=== PATIENT | male | born 1935 | race Caucasian/White ===

== ENCOUNTER 2017-05-07 14:58 | Emergency (ER) | payer MEDICARE ==
[~2017-05-07] VITALS: Ht 177.8 cm; Wt 67.6 kg
[2017-05-07 15:09] VITALS: BP 103/48
[2017-05-07 15:32] LABS: BASOPHILS # (AUTO) 0.5 /CMM (0.0-0.2); BASOPHILS % (AUTO) 3.4 % (0.0-2.0); HEMATOCRIT 39 % (39-51); HEMOGLOBIN 13.6 g/dL (13.5-17.5); LYMPHOCYTES # (AUTO) 2.7 /CMM (0.8-4.8); LYMPHOCYTES % (AUTO) 19.9 % (20.0-44.0); MEAN CORPUSCULAR HEMOGLOBIN 32 PG (26.0-33.0); MEAN CORPUSCULAR HGB CONC 35 g/dl (31.0-36.0); MEAN CORPUSCULAR VOLUME 92 fL (80-96); MONOCYTES # (AUTO) 1.2 /CMM (0.1-1.30); MONOCYTES % (AUTO) 8.7 % (2.0-12.0); NEUTROPHILS # (AUTO) 9.2 /CMM (1.8-8.9); PLATELET COUNT (AUTO) 247 /CMM (150-450); RDW COEFFICIENT OF VARIATION 11.8 (11.5-15.0); RED BLOOD CELL COUNT(AUTO) 4.21 MIL/uL (4.5-6.0); WHITE BLOOD COUNT (AUTO) 13.6 K/uL (4.3-11.0)
[2017-05-07 15:45] LABS: CALCIUM, SERUM 8.7 mg/dL (8.5-10.1); CARBON DIOXIDE 27 mmol/L (21-32); CHLORIDE 99 mmol/L (98-107); GLUCOSE 101 mg/dL (74-106); SODIUM SERUM 135 mmol/L (136-145); UREA NITROGEN, BLOOD 15 mg/dL (7-18)
== END 2017-05-07 16:06 | disposition home or self-care (01) ==
LOC: ER 15:01
DX: S90.561A Insect bite (nonvenomous), right ankle, initial encounter (principal); L03.115 Cellulitis of right lower limb; I10 Essential (primary) hypertension; W57.XXXA Bitten or stung by nonvenomous insect and other nonvenomous arthropods, initial encounter; Y93.89 Activity, other specified; Y92.89 Other specified places as the place of occurrence of the external cause; Y99.8 Other external cause status
CPT/HCPCS: 36415; 73630; 80048; 85025; 99285; A4606; Z7610

== ENCOUNTER 2021-08-16 08:54 | Emergency (ER) | payer MEDICARE ==
[~2021-08-16] VITALS: Ht 175.3 cm; Wt 61.2 kg
--- NOTE | 2021-08-16 09:56 | NUR ---
PT SEEN AND EXAMINED BY .
[2021-08-16] MEDS ORDERED: KETOROLAC TROMETHAMINE INJ 30 MG/ML VIAL IM ONE (10:00)
--- NOTE | 2021-08-16 10:05 | NUR ---
LIMA CATH REPLACED. URINE SPECIMEN COLLECTED AND SENT TO LAB.
[2021-08-16] MEDS ORDERED: KETOROLAC TROMETHAMINE 15 MG/ML VIAL ONE (10:10)
[2021-08-16 10:19] LABS: BILIRUBIN,URINE NEGATIVE (NEGATIVE); COLOR,URINE ORANGE (YELLOW); LEUKOCYTE ESTERASE ,URINE LARGE (NEGATIVE); NITRITE, URINE POSITIVE (NEGATIVE); PROTEIN,URINE 30 mg/dl (NEGATIVE); UGLUCOSE NEGATIVE (NEGATIVE); UROBILINOGEN,URINE 0.2 EU/dL (0.2)
[2021-08-16 10:35] LABS: RBC,URINE TOO NUMEROUS TO COUN /HPF (0-2)
[2021-08-16 10:36] LABS: BACTERIA,URINE Many /HPF (None Seen); SQUAMOUS EPITHELIAL CELL,UR Moderate /HPF (None Seen)
[2021-08-16] MEDS ORDERED: CEPH500C2 PO (10:38)
--- NOTE | 2021-08-16 10:47 | NUR ---
[facility] CALLED WITH ETA [id number]
--- NOTE | 2021-08-16 12:52 | NUR ---
REPORT GIVEN TO AMBULANCE STAFF
[2021-08-16 12:54] VITALS: BP 137/84
--- NOTE | 2021-08-16 12:54 | NUR ---
Patient discharged to home in stable condition. Written and verbal after care instructions given. Patient verbalizes understanding of instruction.
== END 2021-08-16 12:55 | disposition home or self-care (01) ==
LOC: ER 08:56
DX: N39.0 Urinary tract infection, site not specified (principal); T83.091A Other mechanical complication of indwelling urethral catheter, initial encounter; R30.0 Dysuria; I10 Essential (primary) hypertension; Z79.899 Other long term (current) drug therapy
CPT/HCPCS: 51702; 81001; 87086; 96372; 99284; J1885; 87186-TC

== ENCOUNTER 2021-09-08 02:18 | Emergency (ER) | payer MEDICARE ==
[~2021-09-08] VITALS: Ht 175.3 cm; Wt 60.3 kg
[~2021-09-08 02:18] MED LIST: CEPH500C2 PO
[2021-09-08 03:02] LABS: BILIRUBIN,URINE NEGATIVE (NEGATIVE); COLOR,URINE YELLOW (YELLOW); LEUKOCYTE ESTERASE ,URINE LARGE (NEGATIVE); NITRITE, URINE NEGATIVE (NEGATIVE); PROTEIN,URINE 100 mg/dl (NEGATIVE); UGLUCOSE NEGATIVE (NEGATIVE); UROBILINOGEN,URINE 0.2 EU/dL (0.2)
[2021-09-08 03:17] LABS: WBC,URINE 21-50 /HPF (0-3)
[2021-09-08 03:18] LABS: BACTERIA,URINE Few /HPF (None Seen); SQUAMOUS EPITHELIAL CELL,UR Rare /HPF (None Seen); YEAST,URINE Many /HPF (None Seen)
[2021-09-08] MEDS ORDERED: LIDOCAINE 2% JEL UROJET 10 ML MM ONE (04:05)
[2021-09-08] MEDS ORDERED: SULF1TAB48 PO (04:19)
--- NOTE | 2021-09-08 04:25 | NUR ---
Cano catheter changed. Urine flowing.
--- NOTE | 2021-09-08 04:39 | NUR ---
WHILE DISCHARGING THE PT. PT ASKED IF HE COULD STAY UNTIL HIS FRIEND CAN PICK HIM UP. PT CALLED HIS FRIEND, BUT NO ANSWER. ASKED IF HE CAN STAY UNTIL FRIEND ANSWERS.
--- NOTE | 2021-09-08 06:28 | NUR ---
PT CALLED FRIEND AND LEFT A MESSAGE. WILL CALL HIS FRIEND AGAIN IN 20-30 MINS
--- NOTE | 2021-09-08 07:20 | NUR ---
SPOKE WITH PATIENT ABOUT TRANSPORTATION FOR DISCHARGE. SAID HIS FRIEND IS COMING TO PICK HIM UP IN AN HOUR. NO COMPLAINTS AT THIS TIME.
[2021-09-08 08:30] VITALS: BP 118/64
== END 2021-09-08 08:31 | disposition home or self-care (01) ==
LOC: ER 02:20
DX: N39.0 Urinary tract infection, site not specified (principal); T83.098A Other mechanical complication of other urinary catheter, initial encounter; I10 Essential (primary) hypertension; Z79.899 Other long term (current) drug therapy
CPT/HCPCS: 51702; 81001; 87086; 99284; J3490

== ENCOUNTER 2021-10-06 13:23 | Emergency (ER) | payer MEDICARE ==
[~2021-10-06] VITALS: Ht 175.3 cm; Wt 64.6 kg
[~2021-10-06 13:23] MED LIST changes: +SULF1TAB48 PO
--- NOTE | 2021-10-06 13:42 | NUR ---
[id number] FOR MARCY LEG PAIN AND UNABLE TO WALK FEW HOURS "F/C CATH WAS CHANGED 1 WEEK AGO AND HAS NOT BEEN DRAINING USUAL SINCE THAN." VITALS [place] WITHIN NORMAL LIMITS NOT RESP DISTRESS NOTED.
--- NOTE | 2021-10-06 13:52 | NUR ---
BLADDER SCAN DONE AND NOTED [address] CC OF URINE [address] SOLIS MADE AWARE.
[2021-10-06] MEDS ORDERED: LIDOCAINE 2% JEL UROJET 10 ML MM ONE (13:55)
[2021-10-06] MEDS: LIDOCAINE 2% JEL UROJET 10 ML MM ONE (14:01)
--- NOTE | 2021-10-06 14:01 | NUR ---
D/C LIMA CATHETER THAT WAS IN PLACE, INSERTED NEW 16FR LIMA COUDE CATHETER URINE OUTPUT OF 600CC. PT TOLERATED PROCEDURE WELL.
[2021-10-06 14:06] LABS: BASOPHILS % (AUTO) 0.2 % (0.0-2.0); EOSINOPHILS % (AUTO) 0.9 % (0.0-6.0); HEMATOCRIT 43 % (39-51); HEMOGLOBIN 14.7 g/dL (13.5-17.5); LYMPHOCYTES # (AUTO) 3.9 K/uL (0.8-4.8); LYMPHOCYTES % (AUTO) 36.1 % (20.0-44.0); MEAN CORPUSCULAR HGB CONC 34 g/dl (31.0-36.0); MEAN CORPUSCULAR VOLUME 91 fL (80-96); MONOCYTES # (AUTO) 0.7 K/uL (0.1-1.30); MONOCYTES % (AUTO) 6.4 % (2.0-12.0); NEUTROPHILS # (AUTO) 6.1 K/uL (1.8-8.9); NEUTROPHILS % (AUTO) 56.4 % (43.0-81.0); PLATELET COUNT (AUTO) 212 K/uL (150-450); RED BLOOD CELL COUNT(AUTO) 4.69 MIL/uL (4.5-6.0); WHITE BLOOD COUNT (AUTO) 10.8 K/uL (4.3-11.0)
[2021-10-06 14:13] LABS: CARBON DIOXIDE 26 mmol/L (21-32); CHLORIDE 98 mmol/L (98-107); CREATININE 0.9 mg/dL (0.6-1.3); GLUCOSE 101 mg/dL (74-106); SODIUM SERUM 135 mmol/L (136-145); UREA NITROGEN, BLOOD 11 mg/dL (7-18)
--- NOTE | 2021-10-06 14:24 | NUR ---
URINE COLLECTED AND SENT
[2021-10-06 15:03] LABS: BILIRUBIN,URINE NEGATIVE (NEGATIVE); COLOR,URINE YELLOW (YELLOW); LEUKOCYTE ESTERASE ,URINE MODERATE (NEGATIVE); NITRITE, URINE POSITIVE (NEGATIVE); PH,URINE 7.5 (5.0-8.0); PROTEIN,URINE NEGATIVE (NEGATIVE); UGLUCOSE NEGATIVE (NEGATIVE); UROBILINOGEN,URINE 0.2 EU/dL (0.2)
[2021-10-06 15:27] LABS: RBC,URINE 21-50 /HPF (0-2)
[2021-10-06 15:28] LABS: BACTERIA,URINE Moderate /HPF (None Seen); SQUAMOUS EPITHELIAL CELL,UR Few /HPF (None Seen)
[2021-10-06] MEDS ORDERED: CEPH500C2 PO (15:48)
--- NOTE | 2021-10-06 15:53 | NUR ---
Patient discharged to home in stable condition. Written and verbal after care instructions given. Patient verbalizes understanding of instruction.
[2021-10-06 15:54] VITALS: BP 142/80
[2021-10-06] MEDS ORDERED: CEFTRIAXONE 1 G VIAL IM ONE (16:00)
== END 2021-10-06 15:54 | disposition home or self-care (01) ==
LOC: ER 13:25
DX: T83.091A Other mechanical complication of indwelling urethral catheter, initial encounter (principal); N39.0 Urinary tract infection, site not specified; R53.1 Weakness; I10 Essential (primary) hypertension; F17.200 Nicotine dependence, unspecified, uncomplicated; Z79.899 Other long term (current) drug therapy
CPT/HCPCS: 36415; 51702; 80048; 81001; 85025; 86903; 87077; 87086; 87186; 99284; J3490

== ENCOUNTER 2022-05-22 08:20 | Emergency (ER) | payer MEDICARE, OTHER ==
[~2022-05-22] VITALS: Ht 170.2 cm; Wt 66.7 kg
--- NOTE | 2022-05-22 08:31 | NUR ---
TO ER BED 6, [id number] FROM HOME FOR BURNING SENSATION AROUND THE CATHETER AREA, BLE WEAKNESS [id number], AND CONSTIPATION X2DAYS, AAOX3, BREATHING EVEN AND NON LABORED, CONNECTED TO MONITOR, AWAITING MD ORDERS.
--- NOTE | 2022-05-22 08:35 | NUR ---
DR. DYER AT BEDSIDE.
--- NOTE | 2022-05-22 08:40 | NUR ---
ESTABLISHED IV ACCESS 18G LEFT AC. BLOOD DRAWN AND SENT TO LAB.
--- NOTE | 2022-05-22 08:41 | NUR ---
LIMA CATHETER CHANGED. SCANT HEMATURIA NOTED. URINE COLLECTED AND SENT TO LAB. PT STATES "RELEIF OF PAIN".
--- NOTE | 2022-05-22 08:42 | NUR ---
COVID SWAB COLLECTED AND SENT TO LAB.
[2022-05-22 08:54] LABS: BASOPHILS % (AUTO) 0.3 % (0.0-2.0); EOSINOPHILS % (AUTO) 0.7 % (0.0-6.0); HEMATOCRIT 48 % (39-51); LYMPHOCYTES # (AUTO) 5.6 K/uL (0.8-4.8); LYMPHOCYTES % (AUTO) 31.4 % (20.0-44.0); MEAN CORPUSCULAR HGB CONC 34 g/dl (31.0-36.0); MEAN CORPUSCULAR VOLUME 93 fL (80-96); MONOCYTES # (AUTO) 0.9 K/uL (0.1-1.30); MONOCYTES % (AUTO) 5.1 % (2.0-12.0); NEUTROPHILS # (AUTO) 11.1 K/uL (1.8-8.9); NEUTROPHILS % (AUTO) 62.5 % (43.0-81.0); PLATELET COUNT (AUTO) 287 K/uL (150-450); RED BLOOD CELL COUNT(AUTO) 5.09 MIL/uL (4.5-6.0); WHITE BLOOD COUNT (AUTO) 17.8 K/uL (4.3-11.0)
[2022-05-22 09:16] LABS: CALCIUM, SERUM 9.2 mg/dL (8.5-10.1); CARBON DIOXIDE 27 mmol/L (21-32); CHLORIDE 99 mmol/L (98-107); CREATININE 0.9 mg/dL (0.6-1.3); GLUCOSE 133 mg/dL (74-106); POTASSIUM 4.1 mmol/L (3.5-5.1); SODIUM SERUM 136 mmol/L (136-145); UREA NITROGEN, BLOOD 11 mg/dL (7-18)
[2022-05-22] MEDS ORDERED: FINA5TAB11 PO (09:21)
[2022-05-22] MEDS ORDERED: FOSI40TA5 PO (09:21)
[2022-05-22] MEDS ORDERED: AMLO-213 PO (09:21)
[2022-05-22] MEDS ORDERED: TAMS-12 PO (09:21)
[2022-05-22 09:50] LABS: BILIRUBIN,URINE 1+ (NEGATIVE); COLOR,URINE YELLOW (YELLOW); LEUKOCYTE ESTERASE ,URINE 3+ (NEGATIVE); NITRITE, URINE NEGATIVE (NEGATIVE); PROTEIN,URINE 1+ mg/dl (NEGATIVE); UGLUCOSE NEGATIVE (NEGATIVE); UROBILINOGEN,URINE 0.2 EU/dL (0.2)
[2022-05-22 10:12] LABS: RBC,URINE 21-50 /HPF (0-2); WBC,URINE 51-80 /HPF (0-3)
[2022-05-22 10:14] LABS: BACTERIA,URINE Rare /HPF (None Seen); SQUAMOUS EPITHELIAL CELL,UR None Seen /HPF (None Seen)
[2022-05-22] MEDS ORDERED: CEFTRIAXONE 1GM BAG (ER ONLY) 50 ML IV ONE (10:24)
[2022-05-22] MEDS ORDERED: CEFTRIAXONE 1GM BAG (ER ONLY) 1 GM/50 ML PIGGYBACK IV ONE (10:30)
--- NOTE | 2022-05-22 11:13 | NUR ---
POA AT [facility]: ZULY STUART [phone]
--- NOTE | 2022-05-22 12:42 | NUR ---
SCALE MECHANIC AT BEDSIDE.
--- NOTE | 2022-05-22 13:07 | NUR ---
JACKIE BURGESS [phone]
--- NOTE | 2022-05-22 13:15 | NUR ---
PATIENT TAKEN TO CT VIA [facility]
--- NOTE | 2022-05-22 14:11 | NUR ---
DR. MOSHER SPEAKING WITH DR. DYER.
--- NOTE | 2022-05-22 14:15 | NUR ---
PT ACCEPTED TO [facility]
--- NOTE | 2022-05-22 15:11 | NUR ---
JACKIE CALLED AWAITING BED ASSIGNMENT AT [facility].
[2022-05-22 16:14] LABS: BAND % (MANUAL) 1 % (0.0-5.0); EOSINOPHILS % (MANUAL) 1 % (0-4); LYMPHOCYTES % (MANUAL) 27 % (16-48); MONOCYTES % (MANUAL) 4 % (0-11.0); NEUTROPHILS % (MANUAL) 67 (42-76)
--- NOTE | 2022-05-22 16:49 | NUR ---
CALLED JACKIE BURGESS [phone] FOR UPDATE WILL CALL BACK IN 30 MINS.
--- NOTE | 2022-05-22 18:27 | NUR ---
FAXED COVID RESULT TO [phone]
[2022-05-22 18:34] VITALS: BP 132/63
--- NOTE | 2022-05-22 19:35 | NUR ---
PATIENT ACCEPTED AT [facility] ROOM 212 REPORT [phone] NO ETA FOR [employer] [facility]
--- NOTE | 2022-05-22 19:44 | NUR ---
[facility] ETA 75 MINUTES, PER [place] [facility]ATCH
--- NOTE | 2022-05-22 21:45 | NUR ---
PATIENT PICKUP BY [facility] STAFF AND REPORT GIVEN FOR TRANSFER TO [facility] IN A STABLE CONDITION.
--- NOTE | 2022-05-22 23:07 | NUR ---
REPORT GIVEN TO SANDI MAHMOOD ROOM 212 LEATHA MEDINA FOR [facility]
== END 2022-05-22 21:45 | disposition short-term general hospital (02) ==
LOC: ER 08:39
DX: R53.1 Weakness (principal); N39.0 Urinary tract infection, site not specified; Z93.6 Other artificial openings of urinary tract status; M48.061 Spinal stenosis, lumbar region without neurogenic claudication; M25.78 Osteophyte, vertebrae; D72.829 Elevated white blood cell count, unspecified; N40.1 Benign prostatic hyperplasia with lower urinary tract symptoms; R33.8 Other retention of urine; I10 Essential (primary) hypertension; Z79.899 Other long term (current) drug therapy; Z20.822 Contact with and (suspected) exposure to COVID-19
CPT/HCPCS: 99291; 96365; 72131; 87426; 99292; 51702; 85025; 80048; 87086; 81001; 36415; 84484; 85730; 87081; 85007; J0696; C9803

== ENCOUNTER 2022-07-11 20:01 | Emergency (ER) | payer MEDICARE ==
[~2022-07-11 20:01] MED LIST changes: +AMLO-213 PO; -CEPH500C2 PO; +FINA5TAB11 PO; +FOSI40TA5 PO; -SULF1TAB48 PO; +TAMS-12 PO
--- NOTE | 2022-07-11 21:16 | NUR ---
called for triage not in the waiting room
--- NOTE | 2022-07-11 21:26 | NUR ---
called for triage not in the waiting room
--- NOTE | 2022-07-11 21:30 | NUR ---
called for triage not in the waiting room
== END 2022-07-11 21:32 | disposition left against medical advice (07) ==
LOC: ER 20:01
DX: Z53.21 Procedure and treatment not carried out due to patient leaving prior to being seen by health care provider (principal)

== ENCOUNTER 2022-12-14 08:13 | Inpatient (IN) | payer MEDICARE ==
[~2022-12-14] VITALS: Ht 177.8 cm; Wt 64.4 kg
[2022-12-14 09:12] LABS: BASOPHILS % (AUTO) 0.1 % (0.0-2.0); EOSINOPHILS % (AUTO) 0.3 % (0.0-6.0); HEMATOCRIT 46 % (39-51); HEMOGLOBIN 15.6 g/dL (13.5-17.5); LYMPHOCYTES # (AUTO) 3.5 K/uL (0.8-4.8); LYMPHOCYTES % (AUTO) 48.1 % (20.0-44.0); MEAN CORPUSCULAR HEMOGLOBIN 31 PG (26.0-33.0); MEAN CORPUSCULAR HGB CONC 34 g/dl (31.0-36.0); MEAN CORPUSCULAR VOLUME 92 fL (80-96); MONOCYTES # (AUTO) 0.5 K/uL (0.1-1.30); MONOCYTES % (AUTO) 7.3 % (2.0-12.0); NEUTROPHILS # (AUTO) 3.3 K/uL (1.8-8.9); NEUTROPHILS % (AUTO) 44.2 % (43.0-81.0); PLATELET COUNT (AUTO) 142 K/uL (150-450); RED CELL DISTRIBUTION WIDTH 13.7 % (11.5-15.0); WHITE BLOOD COUNT (AUTO) 7.4 K/uL (4.3-11.0)
[2022-12-14 09:19] LABS: CALCIUM, SERUM 9.1 mg/dL (8.5-10.1); CARBON DIOXIDE 26 mmol/L (21-32); CHLORIDE 99 mmol/L (98-107); CREATININE 0.8 mg/dL (0.6-1.3); GLUCOSE 125 mg/dL (74-106); POTASSIUM 3.7 mmol/L (3.5-5.1); SODIUM SERUM 133 mmol/L (136-145); UREA NITROGEN, BLOOD 8 mg/dL (7-18)
[2022-12-14 09:25] LABS: ALANINE AMINOTRANSFERASE 25 U/L (12-78); ALBUMIN 3.2 g/dL (3.4-5.0); ALKALINE PHOSPHATASE 104 U/L (46-116); ASPARTATE AMINOTRANSFERASE 30 U/L (15-37); BILIRUBIN,DIRECT 0.1 mg/dL (0.0-0.2); BILIRUBIN,TOTAL 0.5 mg/dL (0.2-1.0); TOTAL PROTEIN, SERUM 6.6 g/dL (6.4-8.2)
[2022-12-14 13:25] LABS: APPEARANCE,URINE SLIGHTLY CLOUDY (CLEAR); BILIRUBIN,URINE NEGATIVE (NEGATIVE); BLOOD, URINE 2+ Ery/uL (NEGATIVE); COLOR,URINE YELLOW (YELLOW); KETONES,URINE 1+ mg/dL (NEGATIVE); LEUKOCYTE ESTERASE ,URINE 2+ (NEGATIVE); NITRITE, URINE POSITIVE (NEGATIVE); PROTEIN,URINE 1+ mg/dl (NEGATIVE); UGLUCOSE NEGATIVE (NEGATIVE); UROBILINOGEN,URINE 0.2 EU/dL (0.2)
[2022-12-14 13:26] LABS: ADD URINE CULTURE YES; BACTERIA,URINE Moderate /HPF (None Seen); SQUAMOUS EPITHELIAL CELL,UR Rare /HPF (None Seen); WBC,URINE 21-50 /HPF (0-3)
[2022-12-14] MEDS ORDERED: CEFTRIAXONE 1GM BAG (ER ONLY) 1 GM/50 ML PIGGYBACK IV ONE (14:00)
[2022-12-14] MEDS ORDERED: CEFTRIAXONE 1GM BAG (ER ONLY) 50 ML IV ONE (14:09)
[2022-12-14] MEDS ORDERED: GABA-532 PO (16:04)
[2022-12-14] MEDS ORDERED: ENOXAPARIN SODIUM 30 MG/0.3 ML DISP.SYRIN SQ SCH (17:00)
[2022-12-14] MEDS ORDERED: Z GUARD REMEDY 4 OZ OINT TP PRN (17:00)
[2022-12-14] MEDS ORDERED: CLONIDINE HCL 0.1 MG TABLET PO PRN (17:00)
[2022-12-14] MEDS ORDERED: GABAPENTIN 100 MG CAPSULE PO PRN (17:00)
[2022-12-14] MEDS ORDERED: ONDANSETRON HCL/PF 4 MG/2 ML VIAL IVP PRN (17:00)
[2022-12-14] MEDS ORDERED: MAG HYDROX/AL HYDROX/SIMETH 30 ML UDC PO PRN (17:00)
[2022-12-14] MEDS ORDERED: MAGNESIUM HYDROXIDE 30 ML UDC PO PRN (17:00)
[2022-12-14] MEDS ORDERED: ACETAMINOPHEN 325 MG TABLET PO PRN (17:00)
[2022-12-14 20:00] VITALS: BP 160/75; TEMP 99.1; O2SAT 91; O2SAT 94
[2022-12-14] MEDS: ENOXAPARIN SODIUM 40 MG/0.4 ML DISP.SYRIN SQ SCH (21:17)
[2022-12-14] MEDS: IV NS 0.9% 1,000 ML IV PRN (21:20)
[2022-12-14 21:30] VITALS: BP 136/69; TEMP 98.7; O2SAT 95
[2022-12-15 06:47] LABS: BASOPHILS % (AUTO) 0.2 % (0.0-2.0); EOSINOPHILS % (AUTO) 0.3 % (0.0-6.0); HEMATOCRIT 43 % (39-51); HEMOGLOBIN 14.9 g/dL (13.5-17.5); LYMPHOCYTES # (AUTO) 3.8 K/uL (0.8-4.8); LYMPHOCYTES % (AUTO) 55.3 % (20.0-44.0); MEAN CORPUSCULAR HEMOGLOBIN 31 PG (26.0-33.0); MEAN CORPUSCULAR HGB CONC 34 g/dl (31.0-36.0); MEAN CORPUSCULAR VOLUME 91 fL (80-96); MONOCYTES # (AUTO) 0.5 K/uL (0.1-1.30); MONOCYTES % (AUTO) 7.3 % (2.0-12.0); NEUTROPHILS # (AUTO) 2.5 K/uL (1.8-8.9); NEUTROPHILS % (AUTO) 36.9 % (43.0-81.0); PLATELET COUNT (AUTO) 133 K/uL (150-450); RED BLOOD CELL COUNT(AUTO) 4.78 MIL/uL (4.5-6.0); RED CELL DISTRIBUTION WIDTH 13.5 % (11.5-15.0); WHITE BLOOD COUNT (AUTO) 6.8 K/uL (4.3-11.0)
[2022-12-15 07:05] LABS: CALCIUM, SERUM 8.5 mg/dL (8.5-10.1); CARBON DIOXIDE 27 mmol/L (21-32); CHLORIDE 101 mmol/L (98-107); CREATININE 0.8 mg/dL (0.6-1.3); GLUCOSE 98 mg/dL (74-106); PHOSPHORUS 2.9 mg/dL (2.5-4.9); POTASSIUM 3.6 mmol/L (3.5-5.1); SODIUM SERUM 137 mmol/L (136-145); UREA NITROGEN, BLOOD 8 mg/dL (7-18)
[2022-12-15 08:00] VITALS: BP 130/70; TEMP 98.4; O2SAT 92
[2022-12-15] MEDS: TAMSULOSIN 0.4 MG CAP.SR.24H PO SCH (08:26)
[2022-12-15] MEDS: FINASTERIDE (5 MG) 5 MG TABLET PO SCH (08:26)
[2022-12-15] MEDS ORDERED: AMLODIPINE BESYLATE 10 MG TABLET PO SCH (09:00)
[2022-12-15] MEDS: IV NS 0.9% 1,000 ML IV PRN (10:51)
[2022-12-15] MEDS: CEFTRIAXONE 1 G in IV D5W 50 ML IV SCH (13:23)
[2022-12-15] MEDS ORDERED: GABA-532 PO (14:30)
[2022-12-15 16:00] VITALS: BP 128/78; TEMP 98.4; O2SAT 98
[2022-12-15 20:00] VITALS: BP 129/53; TEMP 99.1; O2SAT 95
[2022-12-15] MEDS: GABAPENTIN 100 MG CAPSULE PO SCH (20:40)
[2022-12-15] MEDS: ENOXAPARIN SODIUM 40 MG/0.4 ML DISP.SYRIN SQ SCH (20:40)
[2022-12-16 07:00] VITALS: BP 148/63; TEMP 98.1; O2SAT 92
[2022-12-16 07:31] LABS: BASOPHILS % (AUTO) 0.1 % (0.0-2.0); EOSINOPHILS % (AUTO) 0.4 % (0.0-6.0); HEMATOCRIT 42 % (39-51); HEMOGLOBIN 14.6 g/dL (13.5-17.5); LYMPHOCYTES # (AUTO) 3.5 K/uL (0.8-4.8); LYMPHOCYTES % (AUTO) 52.5 % (20.0-44.0); MEAN CORPUSCULAR HEMOGLOBIN 32 PG (26.0-33.0); MEAN CORPUSCULAR HGB CONC 35 g/dl (31.0-36.0); MEAN CORPUSCULAR VOLUME 90 fL (80-96); MONOCYTES # (AUTO) 0.5 K/uL (0.1-1.30); MONOCYTES % (AUTO) 7.2 % (2.0-12.0); NEUTROPHILS # (AUTO) 2.6 K/uL (1.8-8.9); NEUTROPHILS % (AUTO) 39.8 % (43.0-81.0); PLATELET COUNT (AUTO) 129 K/uL (150-450); RED CELL DISTRIBUTION WIDTH 13.3 % (11.5-15.0); WHITE BLOOD COUNT (AUTO) 6.6 K/uL (4.3-11.0)
[2022-12-16 08:02] LABS: CALCIUM, SERUM 8.1 mg/dL (8.5-10.1); CARBON DIOXIDE 22 mmol/L (21-32); CHLORIDE 101 mmol/L (98-107); CREATININE 0.5 mg/dL (0.6-1.3); GLUCOSE 87 mg/dL (74-106); POTASSIUM 3.2 mmol/L (3.5-5.1); SODIUM SERUM 135 mmol/L (136-145); UREA NITROGEN, BLOOD 6 mg/dL (7-18)
[2022-12-16] MEDS: GABAPENTIN 100 MG CAPSULE PO SCH (08:24)
[2022-12-16] MEDS: TAMSULOSIN 0.4 MG CAP.SR.24H PO SCH (08:25)
[2022-12-16] MEDS: FINASTERIDE (5 MG) 5 MG TABLET PO SCH (08:25)
[2022-12-16 08:27] VITALS: BP 148/63
[2022-12-16] MEDS ORDERED: LISINOPRIL (20MG) 20 MG TABLET PO SCH (09:00)
[2022-12-16] MEDS ORDERED: CEPH500C2 PO (09:50)
[2022-12-16] MEDS ORDERED: POTASSIUM CHLORIDE 20 MEQ TAB.PRT.SR PO ONE (10:00)
[2022-12-16] MEDS: CEFTRIAXONE 1 G in IV D5W 50 ML IV SCH (13:21)
[2022-12-16] MEDS ORDERED: CLOTRIMAZOLE 1% 15 GM TUBE TP SCH (17:00)
== END 2022-12-16 14:45 | disposition home health service (06) | DRG 640 ==
LOC: ER 08:15 → MED 15:41
PROVIDERS: ADMIT Internal Medicine; ATTEND Internal Medicine
DX: E86.0 Dehydration (principal); E43 Unspecified severe protein-calorie malnutrition; G93.41 Metabolic encephalopathy; N39.0 Urinary tract infection, site not specified; J98.11 Atelectasis; N13.8 Other obstructive and reflux uropathy; E87.20 Acidosis, unspecified; E87.1 Hypo-osmolality and hyponatremia; N40.1 Benign prostatic hyperplasia with lower urinary tract symptoms; I10 Essential (primary) hypertension; R33.9 Retention of urine, unspecified; Z79.899 Other long term (current) drug therapy; K21.9 Gastro-esophageal reflux disease without esophagitis; F03.90 Unspecified dementia, unspecified severity, without behavioral disturbance, psychotic disturbance, mood disturbance, and anxiety; E86.1 Hypovolemia; D72.819 Decreased white blood cell count, unspecified; D64.9 Anemia, unspecified; E88.09 Other disorders of plasma-protein metabolism, not elsewhere classified
CPT/HCPCS: 36415; 71045-TC; 80048-TC; 80076-TC; 81001; 83735-TC; 84100-TC; 84484-TC; 85025-TC; 87086-TC; A4223; G0378; J0696; J1650; J7030; J7060

== ENCOUNTER 2022-12-20 19:12 | Emergency (ER) | payer MEDICARE ==
[~2022-12-20] VITALS: Ht 175.3 cm; Wt 65.8 kg
[~2022-12-20 19:12] MED LIST changes: -AMLO-213 PO; +CEPH500C2 PO; +GABA-532 PO
[2022-12-20] MEDS ORDERED: IV NS 0.9% 1,000 ML IV ONE (20:30)
[2022-12-20 21:01] LABS: BASOPHILS # (AUTO) 0.1 K/uL (0.0-0.2); BASOPHILS % (AUTO) 0.8 % (0.0-2.0); EOSINOPHILS # (AUTO) 0.1 K/uL (0.0-0.7); EOSINOPHILS % (AUTO) 1.5 % (0.0-6.0); HEMATOCRIT 44 % (39-51); HEMOGLOBIN 15.1 g/dL (13.5-17.5); LYMPHOCYTES # (AUTO) 3.4 K/uL (0.8-4.8); LYMPHOCYTES % (AUTO) 42.1 % (20.0-44.0); MEAN CORPUSCULAR HEMOGLOBIN 31 PG (26.0-33.0); MEAN CORPUSCULAR HGB CONC 34 g/dl (31.0-36.0); MEAN CORPUSCULAR VOLUME 90 fL (80-96); MONOCYTES # (AUTO) 0.7 K/uL (0.1-1.30); MONOCYTES % (AUTO) 8.1 % (2.0-12.0); NEUTROPHILS # (AUTO) 3.8 K/uL (1.8-8.9); NEUTROPHILS % (AUTO) 47.5 % (43.0-81.0); PLATELET COUNT (AUTO) 296 K/uL (150-450); RED CELL DISTRIBUTION WIDTH 13.3 % (11.5-15.0); WHITE BLOOD COUNT (AUTO) 8.1 K/uL (4.3-11.0)
[2022-12-20 21:21] LABS: CALCIUM, SERUM 8.9 mg/dL (8.5-10.1); CARBON DIOXIDE 22 mmol/L (21-32); CHLORIDE 99 mmol/L (98-107); CREATININE 0.9 mg/dL (0.6-1.3); GLUCOSE 184 mg/dL (74-106); POTASSIUM 3.4 mmol/L (3.5-5.1); SODIUM SERUM 135 mmol/L (136-145); UREA NITROGEN, BLOOD 11 mg/dL (7-18)
[2022-12-20 22:07] LABS: APPEARANCE,URINE SLIGHTLY CLOUDY (CLEAR); BILIRUBIN,URINE NEGATIVE (NEGATIVE); BLOOD, URINE 1+ Ery/uL (NEGATIVE); COLOR,URINE YELLOW (YELLOW); KETONES,URINE TRACE mg/dL (NEGATIVE); LEUKOCYTE ESTERASE ,URINE 1+ (NEGATIVE); NITRITE, URINE NEGATIVE (NEGATIVE); PH,URINE 5.5 (5.0-8.0); PROTEIN,URINE 1+ mg/dl (NEGATIVE); UGLUCOSE NEGATIVE (NEGATIVE)
[2022-12-20 22:20] LABS: ADD URINE CULTURE YES; BACTERIA,URINE 3+ /HPF (None Seen)
[2022-12-20 22:28] VITALS: BP 145/66; TEMP 98.1; O2SAT 98
== END 2022-12-20 22:28 | disposition home or self-care (01) ==
LOC: ER 19:13
DX: T83.091A Other mechanical complication of indwelling urethral catheter, initial encounter (principal); I10 Essential (primary) hypertension
CPT/HCPCS: 99284; 96360; 51701; 85025; 80048; 87086; 81001; 36415; J7030

== ENCOUNTER 2023-12-25 10:07 | Emergency (ER) | payer MEDICARE, OTHER ==
[~2023-12-25] VITALS: Ht 182.9 cm; Wt 81.6 kg
--- NOTE | 2023-12-25 10:30 | NUR ---
BIB Caregiver "He needs a Cano change and I think he may have a UTI"
[2023-12-25 12:30] LABS: APPEARANCE,URINE SLIGHTLY CLOUDY (CLEAR); BILIRUBIN,URINE NEGATIVE (NEGATIVE); BLOOD, URINE 3+ Ery/uL (NEGATIVE); COLOR,URINE YELLOW (YELLOW); KETONES,URINE NEGATIVE (NEGATIVE); LEUKOCYTE ESTERASE ,URINE 3+ (NEGATIVE); NITRITE, URINE POSITIVE (NEGATIVE); PROTEIN,URINE NEGATIVE (NEGATIVE); UGLUCOSE NEGATIVE (NEGATIVE); UROBILINOGEN,URINE 0.2 EU/dL (0.2)
[2023-12-25 13:02] LABS: WBC,URINE 21-50 /HPF (0-3)
[2023-12-25 13:03] LABS: ADD URINE CULTURE YES; BACTERIA,URINE Many /HPF (None Seen); SQUAMOUS EPITHELIAL CELL,UR Few /HPF (None Seen)
[2023-12-25] MEDS ORDERED: CEPH500T PO (13:11)
[2023-12-25 13:50] VITALS: BP 135/77; TEMP 98.3; O2SAT 98
--- NOTE | 2023-12-25 13:51 | NUR ---
Patient discharged to home in stable condition. Written and verbal after care instructions given. Patient verbalizes understanding of instruction.
== END 2023-12-25 13:51 | disposition home or self-care (01) ==
LOC: ER 10:11
DX: T83.098A Other mechanical complication of other urinary catheter, initial encounter (principal); I10 Essential (primary) hypertension; F17.200 Nicotine dependence, unspecified, uncomplicated; N39.0 Urinary tract infection, site not specified; Y84.6 Urinary catheterization as the cause of abnormal reaction of the patient, or of later complication, without mention of misadventure at the time of the procedure; Y92.89 Other specified places as the place of occurrence of the external cause
CPT/HCPCS: 81001

== ENCOUNTER 2024-09-15 10:44 | Inpatient (IN) | payer MEDICARE, OTHER ==
[~2024-09-15] VITALS: Ht 167.6 cm; Wt 64.0 kg
[~2024-09-15 10:44] MED LIST changes: +CEPH500T PO
[2024-09-15 11:25] LABS: BASOPHILS % (AUTO) 0.1 % (0.0-2.0); EOSINOPHILS % (AUTO) 0.1 % (0.0-6.0); HEMATOCRIT 50 % (39-51); HEMOGLOBIN 16.8 g/dL (13.5-17.5); LYMPHOCYTES % (AUTO) 26.6 % (20.0-44.0); MEAN CORPUSCULAR HEMOGLOBIN 32 PG (26.0-33.0); MEAN CORPUSCULAR HGB CONC 34 g/dl (31.0-36.0); MEAN CORPUSCULAR VOLUME 94 fL (80-96); MONOCYTES % (AUTO) 3.9 % (2.0-12.0); NEUTROPHILS # (AUTO) 18.2 K/uL (1.8-8.9); NEUTROPHILS % (AUTO) 69.3 % (43.0-81.0); PLATELET COUNT (AUTO) 201 K/uL (150-450); RED BLOOD CELL COUNT(AUTO) 5.27 MIL/uL (4.5-6.0); RED CELL DISTRIBUTION WIDTH 13.8 % (11.5-15.0); WHITE BLOOD COUNT (AUTO) 26.2 K/uL (4.3-11.0)
[2024-09-15] MEDS: IV NS 0.9% 1,000 ML BAG IV ONE ×2 (11:30→12:00)
[2024-09-15 11:39] LABS: ALBUMIN 3.6 g/dL (3.4-5.0); BILIRUBIN,DIRECT 0.2 mg/dL (0.0-0.2); BILIRUBIN,TOTAL 0.9 mg/dL (0.2-1.0); CALCIUM, SERUM 9.4 mg/dL (8.5-10.1); CREATININE 0.9 mg/dL (0.6-1.3); POTASSIUM 4.2 mmol/L (3.5-5.1)
[2024-09-15 11:43] LABS: LACTIC ACID 2.6 mmol/L (0.4-2.0)
[2024-09-15] MEDS: CEFTRIAXONE 1GM BAG (ER ONLY) 50 ML IV ONE (12:20)
[2024-09-15] MEDS ORDERED: AMLO10TA4 PO (12:48)
[2024-09-15 13:03] LABS: APPEARANCE,URINE SLIGHTLY CLOUDY (CLEAR); COLOR,URINE LIGHT RED (YELLOW)
[2024-09-15 13:04] LABS: BACTERIA,URINE 2+ /HPF (None Seen); SQUAMOUS EPITHELIAL CELL,UR None Seen /HPF (None Seen); WBC,URINE 21-50 /HPF (0-3)
[2024-09-15 15:00] VITALS: BP 166/67; TEMP 98.1; O2SAT 93
[2024-09-15] MEDS ORDERED: MAGNESIUM HYDROXIDE 30 ML UDC PO PRN (15:30)
[2024-09-15] MEDS ORDERED: ACETAMINOPHEN 325 MG TABLET PO PRN (15:30)
[2024-09-15] MEDS ORDERED: ONDANSETRON HCL/PF 4 MG/2 ML VIAL IVP PRN (15:30)
[2024-09-15] MEDS ORDERED: Z GUARD REMEDY 4 OZ OINT TP PRN (15:30)
[2024-09-15] MEDS ORDERED: MAG HYDROX/AL HYDROX/SIMETH 30 ML UDC PO PRN (15:30)
[2024-09-15 16:00] VITALS: BP 149/66; TEMP 98.1; O2SAT 94
[2024-09-15] MEDS: MEROPENEM 500 MG in IV NS 0.9% 50 ML IV SCH (17:41)
[2024-09-15] MEDS: IV LR 1000 ML 1,000 ML IV SCH (17:42)
[2024-09-15] MEDS: ENOXAPARIN SODIUM 40 MG/0.4 ML DISP.SYRIN SQ SCH (18:33)
[2024-09-15] MEDS ORDERED: BISACODYL SUPP (10 MG) 10 MG/SUPP.RECT SUPP.RECT RC PRN (19:30)
[2024-09-15] MEDS ORDERED: LACTULOSE 10 G/15 ML UDC (PYXIS) PO PRN (19:30)
[2024-09-15 20:00] VITALS: BP 139/57; TEMP 99; O2SAT 93
[2024-09-16 07:42] LABS: CALCIUM, SERUM 8.7 mg/dL (8.5-10.1); CREATININE 0.8 mg/dL (0.6-1.3); MAGNESIUM 1.9 mg/dL (1.8-2.4); PHOSPHORUS 2.6 mg/dL (2.5-4.9); POTASSIUM 3.5 mmol/L (3.5-5.1)
[2024-09-16 08:00] VITALS: BP 173/72; TEMP 98.1; O2SAT 96
[2024-09-16 08:32] LABS: BASOPHILS % (AUTO) 0.2 % (0.0-2.0); EOSINOPHILS # (AUTO) 0.1 K/uL (0.0-0.7); EOSINOPHILS % (AUTO) 0.8 % (0.0-6.0); HEMATOCRIT 39 % (39-51); HEMOGLOBIN 13.4 g/dL (13.5-17.5); LYMPHOCYTES % (AUTO) 40.3 % (20.0-44.0); MEAN CORPUSCULAR HEMOGLOBIN 32 PG (26.0-33.0); MEAN CORPUSCULAR HGB CONC 35 g/dl (31.0-36.0); MEAN CORPUSCULAR VOLUME 93 fL (80-96); MONOCYTES # (AUTO) 0.9 K/uL (0.1-1.30); MONOCYTES % (AUTO) 5.9 % (2.0-12.0); NEUTROPHILS # (AUTO) 7.9 K/uL (1.8-8.9); NEUTROPHILS % (AUTO) 52.8 % (43.0-81.0); PLATELET COUNT (AUTO) 166 K/uL (150-450); RED BLOOD CELL COUNT(AUTO) 4.21 MIL/uL (4.5-6.0); RED CELL DISTRIBUTION WIDTH 13.6 % (11.5-15.0)
[2024-09-16] MEDS: SORBITOL SOLUTION 70% 30 ML SOLUTION PO SCH (08:56)
[2024-09-16 08:57] VITALS: BP 173/72
[2024-09-16] MEDS: LISINOPRIL (20MG) 20 MG TABLET PO SCH (08:57)
[2024-09-16] MEDS: TAMSULOSIN 0.4 MG CAP.SR.24H PO SCH (08:57)
[2024-09-16] MEDS: AMLODIPINE BESYLATE 10 MG TABLET PO SCH (08:57)
[2024-09-16] MEDS: FINASTERIDE (5 MG) 5 MG TABLET PO SCH (08:57)
[2024-09-16] MEDS: GABAPENTIN 100 MG CAPSULE PO SCH (08:57)
[2024-09-16] MEDS ORDERED: SULF1TAB48 PO (12:14)
[2024-09-16] MEDS ORDERED: SORB30SO2 PO (12:14)
[2024-09-16] MEDS ORDERED: METH1TAB69 PO (12:14)
[2024-09-16 12:37] LABS: LYMPHOCYTES % (MANUAL) 46 % (16-48); NEUTROPHILS % (MANUAL) 54 (42-76); PLATELET ESTIMATE ADEQUATE
== END 2024-09-16 14:45 | disposition home or self-care (01) | DRG 690 ==
LOC: ER 10:46 → TELE 12:23 → MED 15:09
PROVIDERS: ADMIT Nurse Practitioner Acute Care; ATTEND Nurse Practitioner Acute Care
DX: N39.0 Urinary tract infection, site not specified (principal); E87.1 Hypo-osmolality and hyponatremia; I10 Essential (primary) hypertension; N40.0 Benign prostatic hyperplasia without lower urinary tract symptoms; Z79.899 Other long term (current) drug therapy; K62.89 Other specified diseases of anus and rectum; I25.10 Atherosclerotic heart disease of native coronary artery without angina pectoris; G62.9 Polyneuropathy, unspecified; D72.829 Elevated white blood cell count, unspecified; K59.09 Other constipation
CPT/HCPCS: 36415; 71045-TC; 80048-TC; 80061-TC; 80076-TC; 81001; 83605-TC; 83690-TC; 83735-TC; 84100-TC; 85025-TC; 87040-TC; 87186-TC; A4223; G0378; J1650; J2185; J7120

== ENCOUNTER 2024-09-24 17:39 | Inpatient (IN) | payer MEDICARE, OTHER ==
[~2024-09-24] VITALS: Ht 170.2 cm; Wt 63.5 kg
[~2024-09-24 17:39] MED LIST changes: +AMLO10TA4 PO; -CEPH500C2 PO; -CEPH500T PO; +METH1TAB69 PO; +SORB30SO2 PO; +SULF1TAB48 PO
[2024-09-24 18:48] LABS: HEMOGLOBIN 15.8 g/dL (13.5-17.5); MEAN CORPUSCULAR HGB CONC 35 g/dl (31.0-36.0); RED BLOOD CELL COUNT(AUTO) 5.03 MIL/uL (4.5-6.0)
[2024-09-24 18:48] LABS: APPEARANCE,URINE CLEAR (CLEAR); BILIRUBIN,URINE Negative (NEGATIVE); BLOOD, URINE Large Ery/uL (NEGATIVE); COLOR,URINE YELLOW (YELLOW); KETONES,URINE Negative (NEGATIVE); LEUKOCYTE ESTERASE ,URINE Small (NEGATIVE); PH,URINE 6.5 (5.0-8.0); PROTEIN,URINE Negative (NEGATIVE); UGLUCOSE Negative (NEGATIVE); UROBILINOGEN,URINE 0.2 EU/dL (0.2)
[2024-09-24 18:50] LABS: NITRITE, URINE NEGATIVE (NEGATIVE)
[2024-09-24 18:51] LABS: BASOPHILS % (AUTO) 0.3 % (0.0-2.0); EOSINOPHILS # (AUTO) 0.2 K/uL (0.0-0.7); EOSINOPHILS % (AUTO) 1.8 % (0.0-6.0); HEMATOCRIT 46 % (39-51); LYMPHOCYTES # (AUTO) 7.3 K/uL (0.8-4.8); LYMPHOCYTES % (AUTO) 63.4 % (20.0-44.0); MEAN CORPUSCULAR HEMOGLOBIN 31 PG (26.0-33.0); MEAN CORPUSCULAR VOLUME 91 fL (80-96); MONOCYTES # (AUTO) 0.4 K/uL (0.1-1.30); MONOCYTES % (AUTO) 3.8 % (2.0-12.0); NEUTROPHILS # (AUTO) 3.5 K/uL (1.8-8.9); NEUTROPHILS % (AUTO) 30.7 % (43.0-81.0); PLATELET COUNT (AUTO) 269 K/uL (150-450); RED CELL DISTRIBUTION WIDTH 13.5 % (11.5-15.0); WHITE BLOOD COUNT (AUTO) 11.6 K/uL (4.3-11.0)
[2024-09-24 18:55] LABS: CALCIUM, SERUM 8.7 mg/dL (8.5-10.1); CARBON DIOXIDE 23 mmol/L (21-32); CHLORIDE 99 mmol/L (98-107); CREATININE 0.9 mg/dL (0.6-1.3); GLUCOSE 107 mg/dL (74-106); POTASSIUM 4.2 mmol/L (3.5-5.1); SODIUM SERUM 131 mmol/L (136-145); UREA NITROGEN, BLOOD 11 mg/dL (7-18)
[2024-09-24 18:56] LABS: ADD URINE CULTURE YES; BACTERIA,URINE 1+ /HPF (None Seen); HYALINE CASTS, URINE Few /LPF (None Seen); SQUAMOUS EPITHELIAL CELL,UR Rare /HPF (None Seen); WBC,URINE 21-50 /HPF (0-3)
[2024-09-24 18:59] LABS: PARTIAL THROMBOPLASTIN TIME 26.8 SEC (24.3-34.3); PROTHROMBIN TIME 10.3 SECS (9.2-11.1)
[2024-09-24 19:02] LABS: ALANINE AMINOTRANSFERASE 16 U/L (12-78); ALBUMIN 3.5 g/dL (3.4-5.0); ALKALINE PHOSPHATASE 126 U/L (46-116); ASPARTATE AMINOTRANSFERASE 20 U/L (15-37); BILIRUBIN,DIRECT 0.1 mg/dL (0.0-0.2); BILIRUBIN,TOTAL 0.4 mg/dL (0.2-1.0); TOTAL PROTEIN, SERUM 7.1 g/dL (6.4-8.2)
[2024-09-24 19:04] LABS: LACTIC ACID 1.2 mmol/L (0.4-2.0)
[2024-09-24] MEDS: ALBUTEROL FS 2.5 MG/3 ML VIAL.NEB NEB ONE (19:40)
[2024-09-24 19:45] VITALS: O2SAT 97
[2024-09-24] MEDS ORDERED: ALBUTEROL FS 2.5 MG/3 ML VIAL.NEB ONE (19:48)
[2024-09-24] MEDS: CEFTRIAXONE 1GM BAG (ER ONLY) 1 GM/50 ML PIGGYBACK IV ONE (19:55)
[2024-09-24 20:42] VITALS: O2SAT 97
[2024-09-24 20:52] VITALS: O2SAT 100
[2024-09-24 20:55] VITALS: O2SAT 98
[2024-09-24 21:05] VITALS: O2SAT 100
[2024-09-24] MEDS ORDERED: Z GUARD REMEDY 4 OZ OINT TP PRN (23:00)
[2024-09-24] MEDS ORDERED: ONDANSETRON HCL/PF 4 MG/2 ML VIAL IVP PRN (23:00)
[2024-09-24] MEDS ORDERED: ACETAMINOPHEN 325 MG TABLET PO PRN (23:00)
[2024-09-24] MEDS ORDERED: MAGNESIUM HYDROXIDE 30 ML UDC PO PRN (23:00)
[2024-09-25] VITALS (10 sets, daily range): BP systolic 105–163; BP diastolic 51–86; TEMP 97.5–102; O2SAT 94–100
[2024-09-25] MEDS: AZITHROMYCIN 250 MG TABLET PO ONE (00:55)
[2024-09-25] MEDS: SULFAMETH/TRIMETH 800/160 MG 1 UDTAB TABLET PO SCH (00:55)
[2024-09-25] MEDS: ENOXAPARIN SODIUM 40 MG/0.4 ML DISP.SYRIN SQ SCH (00:56)
[2024-09-25] MEDS ORDERED: MUPIROCIN OINT 2% 22 GM TUBE ONE (01:47)
[2024-09-25] MEDS: MUPIROCIN OINT 2% 22 GM TUBE TP SCH (01:49)
[2024-09-25] MEDS: IPRATROPIUM NEB FS 0.5 MG/2.5 ML AMPUL.NEB NEB SCH (07:35)
[2024-09-25] MEDS: ALBUTEROL FS 2.5 MG/3 ML VIAL.NEB NEB SCH (07:35)
[2024-09-25] MEDS: PANTOPRAZOLE 40 MG TABLET.DR PO SCH (08:27)
[2024-09-25] MEDS: TAMSULOSIN 0.4 MG CAP.SR.24H PO SCH (08:27)
[2024-09-25] MEDS: GABAPENTIN 100 MG CAPSULE PO SCH (08:27)
[2024-09-25] MEDS: AMLODIPINE BESYLATE 10 MG TABLET PO SCH (08:44)
[2024-09-25] MEDS: LISINOPRIL (20MG) 20 MG TABLET PO SCH (08:44)
[2024-09-25] MEDS: FINASTERIDE (5 MG) 5 MG TABLET PO SCH (08:48)
[2024-09-25] MEDS: CEFTRIAXONE 1 G in IV D5W 50 ML IV SCH (12:43)
[2024-09-25 13:10] LABS: CALCIUM, SERUM 8.2 mg/dL (8.5-10.1); CREATININE 0.7 mg/dL (0.6-1.3); PHOSPHORUS 3.2 mg/dL (2.5-4.9); POTASSIUM 4.2 mmol/L (3.5-5.1)
[2024-09-25 13:34] LABS: BASOPHILS # (AUTO) 0.1 K/uL (0.0-0.2); BASOPHILS % (AUTO) 0.4 % (0.0-2.0); EOSINOPHILS % (AUTO) 0.3 % (0.0-6.0); HEMATOCRIT 45 % (39-51); HEMOGLOBIN 15.6 g/dL (13.5-17.5); LYMPHOCYTES # (AUTO) 4.8 K/uL (0.8-4.8); LYMPHOCYTES % (AUTO) 34.1 % (20.0-44.0); MEAN CORPUSCULAR HEMOGLOBIN 32 PG (26.0-33.0); MEAN CORPUSCULAR HGB CONC 35 g/dl (31.0-36.0); MEAN CORPUSCULAR VOLUME 91 fL (80-96); MONOCYTES # (AUTO) 0.6 K/uL (0.1-1.30); MONOCYTES % (AUTO) 4.1 % (2.0-12.0); NEUTROPHILS # (AUTO) 8.7 K/uL (1.8-8.9); NEUTROPHILS % (AUTO) 61.1 % (43.0-81.0); PLATELET COUNT (AUTO) 285 K/uL (150-450); RED BLOOD CELL COUNT(AUTO) 4.92 MIL/uL (4.5-6.0); RED CELL DISTRIBUTION WIDTH 13.7 % (11.5-15.0); WHITE BLOOD COUNT (AUTO) 14.2 K/uL (4.3-11.0)
[2024-09-26] VITALS (9 sets, daily range): BP systolic 98–120; BP diastolic 42–86; TEMP 97.7–98.4; O2SAT 92–100
[2024-09-26] MEDS: AZITHROMYCIN 250 MG TABLET PO SCH (00:05)
[2024-09-26 07:53] LABS: CALCIUM, SERUM 8.6 mg/dL (8.5-10.1); MAGNESIUM 2.1 mg/dL (1.8-2.4); PHOSPHORUS 3.6 mg/dL (2.5-4.9); POTASSIUM 4.3 mmol/L (3.5-5.1)
[2024-09-26 08:30] LABS: THYROID STIMULATING HORMONE 0.92 uIU/mL (0.358-3.74)
[2024-09-27 05:00] VITALS: BP 103/56; TEMP 97.9; O2SAT 93
[2024-09-27 08:00] VITALS: BP 136/67; TEMP 97.9; O2SAT 93
[2024-09-27 08:22] VITALS: O2SAT 96
[2024-09-27 08:37] VITALS: O2SAT 99
[2024-09-27 10:10] VITALS: BP 136/70
[2024-09-27] MEDS: BISACODYL (5 MG) 5 MG TABLET.DR PO PRN (10:14)
[2024-09-27] MEDS ORDERED: CEFU250T85 PO (11:19)
[2024-09-27] MEDS ORDERED: LACT1CAP63 PO (11:19)
[2024-09-27] MEDS ORDERED: SULF1TAB48 PO (11:19)
[2024-09-27 13:52] VITALS: O2SAT 96
== END 2024-09-27 14:35 | disposition home health service (06) | DRG 202 ==
LOC: ER 17:42 → TELE1 22:26 → MEDSG1 09-26 11:14
PROVIDERS: ADMIT Nurse Practitioner Family; ATTEND Nurse Practitioner Acute Care
DX: J20.8 Acute bronchitis due to other specified organisms (principal); J96.01 Acute respiratory failure with hypoxia; E87.1 Hypo-osmolality and hyponatremia; N39.0 Urinary tract infection, site not specified; G62.9 Polyneuropathy, unspecified; Z20.822 Contact with and (suspected) exposure to COVID-19; I10 Essential (primary) hypertension; Z79.899 Other long term (current) drug therapy; J06.9 Acute upper respiratory infection, unspecified; D72.829 Elevated white blood cell count, unspecified; Q54.9 Hypospadias, unspecified; B96.1 Klebsiella pneumoniae [K. pneumoniae] as the cause of diseases classified elsewhere; N40.0 Benign prostatic hyperplasia without lower urinary tract symptoms; Z86.14 Personal history of Methicillin resistant Staphylococcus aureus infection; Z87.440 Personal history of urinary (tract) infections; I25.10 Atherosclerotic heart disease of native coronary artery without angina pectoris; Z87.19 Personal history of other diseases of the digestive system; M20.42 Other hammer toe(s) (acquired), left foot; M20.41 Other hammer toe(s) (acquired), right foot; F12.90 Cannabis use, unspecified, uncomplicated; E78.5 Hyperlipidemia, unspecified
CPT/HCPCS: 36415; 71045-TC; 80048-TC; 80076-TC; 81001; 83605-TC; 83735-TC; 83880; 83935-TC; 84100-TC; 84300-TC; 84443-TC; 84550-TC; 85025-TC; 85730-TC; 87040-TC; 94760-TC; 94799-TC; 97110-TC; 97112-TC; 97530-TC; A4223; G0378; J0696; J1650; J7060